=== PATIENT | female | born 1950 | race Caucasian/White ===

== ENCOUNTER 2016-07-25 15:45 | Outpatient (CLI) | payer OTHER ==
--- NOTE | 2016-07-25 16:04 | DIAGNOSTIC IMAGING REPORT ---
PROCEDURE: XR CHEST 2 VIEW INDICATION: COUGH TECHNIQUE: PA and lateral views. COMPARISON: Chest 10/18/13 FINDINGS: Lungs are clear. Heart and mediastinum are normal. Thorax is normal. IMPRESSION: 1. Negative chest.
== END 2016-07-25 23:00 ==
LOC: XR SRH 15:45
DX: R05 Cough (principal)